=== PATIENT | female | born 1980 | race American Indian/Alaskan Native ===

== ENCOUNTER 2018-03-14 13:13 | Emergency (ER) | payer OTHER ==
[~2018-03-14] VITALS: Ht 152.4 cm; Wt 55.3 kg
[~2018-03-14 13:13] MED LIST: DOXYCYCLINE HY100 MG PO; HYDROXYZINE HCL50 MG PO; IBUPROFEN200 M1 PO; IRON240 MG PO; NORCO 5-325 TA1 EACH PO; OXYCODONE HCL5 MG PO; PRENATAL VITAM1 EACH PO; TUMS200 MG PO; ZOFRAN ODT4 MG PO; ZOFRAN ODT8 MG PO
[2018-03-14] MEDS ORDERED: DOXYCYCLINE HY100 MG PO (13:44)
== END 2018-03-14 14:02 | disposition home or self-care (01) ==
LOC: ED 13:13
DX: S00.06XA Insect bite (nonvenomous) of scalp, initial encounter (principal); Z88.2 Allergy status to sulfonamides; Z88.1 Allergy status to other antibiotic agents; W57.XXXA Bitten or stung by nonvenomous insect and other nonvenomous arthropods, initial encounter
CPT/HCPCS: 99283

== ENCOUNTER 2019-02-08 13:53 | Emergency (ER) | payer OTHER ==
[~2019-02-08] VITALS: Ht 152.4 cm; Wt 55.3 kg
[2019-02-08] MEDS ORDERED: ZOFRAN4 MG SL (16:27)
[2019-02-08] MEDS ORDERED: DICYCLOMINE HCL20 MG PO (16:27)
== END 2019-02-08 16:45 | disposition home or self-care (01) ==
LOC: ED 13:53
DX: R10.31 Right lower quadrant pain (principal); Z88.1 Allergy status to other antibiotic agents; Z88.2 Allergy status to sulfonamides
CPT/HCPCS: 74177; 80053; 81001; 83690; 84703; 85025; 96361; 99284-25; J1885; J2405; J7030; Q9967

== ENCOUNTER 2019-10-04 18:18 | Emergency (ER) | payer OTHER ==
[~2019-10-04] VITALS: Ht 152.4 cm; Wt 55.3 kg
[~2019-10-04 18:18] MED LIST changes: +DICYCLOMINE HCL20 MG PO; +ZOFRAN4 MG SL
[2019-10-04] MEDS ORDERED: ACETAMINOPHEN-1 EAC1 PO (22:35)
[2019-10-04] MEDS ORDERED: IBUPROFEN600 MG PO (22:35)
== END 2019-10-04 22:43 | disposition home or self-care (01) ==
LOC: ED 18:18
DX: N83.201 Unspecified ovarian cyst, right side (principal); Z88.2 Allergy status to sulfonamides; Z88.1 Allergy status to other antibiotic agents; Z88.8 Allergy status to other drugs, medicaments and biological substances
CPT/HCPCS: 74177; 80053; 81001; 83690; 84703; 85025; 96361; 99284-25; A9270; J7030; Q9967

== ENCOUNTER 2021-05-15 07:29 | Observation (INO) | payer OTHER ==
[~2021-05-15] VITALS: Ht 152.4 cm; Wt 60.3 kg
[~2021-05-15 07:29] MED LIST changes: +ACETAMINOPHEN-1 EAC1 PO; +IBUPROFEN600 MG PO
[2021-05-15] MEDS ORDERED: VENTOLIN HFA18 GM INH (07:45)
[2021-05-15] MEDS ORDERED: PENICILLIN V P500 MG PO (07:45)
--- NOTE | 2021-05-15 13:52 | NUR ---
05/15/21 1352 Sheets,Geraldine 1340 PT ARRIVED TO PACU WITH ORAL AIRWAY IN PLACE AND ON 6L VIA MASK. VSS. PT NONAROUSABLE TO PAINFUL STIMULI. 1349 ORAL AIRWAY REMOVED, PT WOKE AND FOLLOWING COMMANDS. PT REORIETNED TO PACU AND DENIES PAIN AND NAUSEA. PT EASILY FALLS BACK TO SLEEP.
--- NOTE | 2021-05-15 14:20 | NUR ---
Patient arrives in bed with Delia Valles RN. Currently on room air. Vital signs obtained, WNL. Patient is lethargic at this time and would like to rest. Incisions with steri strips in place. Umbilicus with small amount of serosanguinous drainage noted.
--- NOTE | 2021-05-15 15:36 | NUR ---
POST OP VITALS COMPLETED AND WNL. PT WITH NO PAIN. WAKING UP MORE NOW. AT BEDSIDE. JELLO PROVIDED. DENIES NAUSEA. LAP SITES WITH STERI STRIP AND SCANT AMOUNT OF DRAINAGE. CALL LIGHT IN REACH.
--- NOTE | 2021-05-15 17:33 | NUR ---
POST OP VITALS COMPLETED. PT REPORTS 4/10 PAIN INCREASING. PRN PERCOCET ADMISNTERED. LAP SITES WITH NO NEW DRAINAGE. NO NAUSEA. PT EATING REGULAR DIET FOR DINNER. UP TO VOID 600ML INDEPENDENTLY WITH . DENEIS FURTHER NEEDS. CALL LIGHT IN REACH.
[2021-05-15] MEDS ORDERED: FLONASE ALLERG9.9 ML NAS (18:09)
[2021-05-15] MEDS ORDERED: LUBRICANT EYE D15 M3 OU (18:10)
[2021-05-15] MEDS ORDERED: ALLERGY EYE DRO10 M1 OU (18:10)
--- NOTE | 2021-05-15 18:11 | NUR ---
MED REC COMPLETE
--- NOTE | 2021-05-15 18:12 | NUR ---
PT REPORTING NAUSEA. NO MEDS AVAILABLE. DR LEE NOTIFIED. TELEPHONE ORDER FR 4MG ZOFRAN IV Q6P AND PHENERGAN 12.5MG IV Q6P. ORDERS PLACED.
--- NOTE | 2021-05-15 18:29 | NUR ---
SMALL AMOUNT OF NAUSEA. ZOFRAN GIVEN. PT EATING DINNER NOW.
--- NOTE | 2021-05-15 19:47 | NUR ---
had 600cc undigested food emesis, received zofran earlier, pepcid given at this time. up to br, voided, changed intp regular clothes, sitting edge of bed talking to . no further c/o abd pain, tolerated well
--- NOTE | 2021-05-15 22:07 | NUR ---
UP TO BR, VOIDED LARGE AMOUNTS OF CLEAR YELLOW URINE, BACKA TO BED, TOLERATED WELL, IVF INFUSING, SCDS IN PLACE. CALL LIGHT AND FLUIDS AT BEDSIDE
--- NOTE | 2021-05-15 23:04 | NUR ---
scds off at her requests, turns and repositons self in bed, ivf infusing
--- NOTE | 2021-05-16 01:53 | NUR ---
Up to br, voided clear yellow urine QS. back to bed, c/o abd pain, medicated with 1 Percocet and 1 Motrin po. medicated with Zofran per slight c/o upset stomach. no emesis at this time. IVF and abx infusing w/o problems. Coop with assessment. Med teaching and post op home care explained to pt, stated understanding
--- NOTE | 2021-05-16 05:18 | NUR ---
Pt has slept off andon this shift. On room air. passing gas, [address] with old drainage. NATHANIEL, abd tender and soft. no bm since 05/14. Walked to BR several times and has been voided QS yellow urine. Has been medicated with Percocet, Motrin per abd pain with good pain relief. Had emesis at begining of shift, medicated with Zofran. tolerating liquids in small amounts. IVF infusing, cooperative. post op home dc expectations given verbally, all questions answered to her satisfaction. pleasant and cooperative. SCDS on, taken off at this time, Pt to be dc today, DC instructions and RX read for pt. uses call light
--- NOTE | 2021-05-16 06:35 | NUR ---
pt up to br, voided, low bp obtained 83/48 map 54 and 86/50 map 59, pulse 54 pt asymptomatic. alert and oriented, moving, drinking fluids, no c/o n/v or abd pain. message left w Dr Salinas phone [phone]
--- NOTE | 2021-05-16 06:42 | NUR ---
dr grover notified of low bp of 86/50 map 59, and 83/48 map 54 P54, asymptomatic, denies lighheadness, had walked to br, tolerating fluids well, visiting with family via phone at this time. " continue to observe, she had low bp's when I first saw her in the ER, seems to be her normal, cont to observe and recheck bp in 1-2 hours or earlier if symptomatic.
--- NOTE | 2021-05-16 08:12 | NUR ---
BENY RN ASKED THIS RN TO RECHECK PTS BP. PT SITTING UP TO SIDE OF BED AND HAD VOMITED 200ML. THIS RN TO RECHECK IT, 86 SBP. THIS RN RECHECKED WITH A MANUAL- 85/55. PT DENIES ANY DIZZYNESS AND WAS ABLE TO MOVE FROM ONE EDGE OF BED TO THE OTHER. PT REPORTS TO THIS RN THAT PT HAD ISSUES WITH PAIN MEDS WHEN SHE HAD A . PT DOES REPORT NAUSEA AND RELATES THIS TO HER IBUPROHEN AND PERCOCET THAT SHE RECEIVED.
--- NOTE | 2021-05-16 08:21 | NUR ---
THIS RN PROVIDED PT WITH 4MG OF ZOFRAN DUE TO PT REPORTING HAVING NAUSEA THIS AM AFTER TRYING OT EAT BREAKFAST
--- NOTE | 2021-05-16 08:45 | NUR ---
THIS RN IN TO ASSESS PT AND ADMINISTER SCHEDULED MEDICATIONS. PT SITTING UP AT THE SIDE OF THE BED AWAKE AND ALERT ON THE PHONE. PT REPORTS NO PAIN AT THIS TIME AND STATES HER NAUSEA HAS IMPROVED SINCE HAVING PRN ZOFRAN. SCHEDULED MEDICATIONS ADMINISTERED AT THIS TIME (SEE NOV). PT ASSESSED, 3 LAP SITES ARE INTACT WITH NO ACTIVE DRAINAGE, SITE BELOW UMBILICUS NOTED TO HAVE DRY BLOOD. PT REPORTS NO PAIN, PULSES ARE STRONG, PT DENIES NUMBNESS AND TINGLING. PT REPORTS NO FURTHER NEEDS AT THIS TIME WHEN ASKED, WILL CONTINUE PLAN OF CARE. CALL LIGHT IN REACH, BED IN LOWEST POSITION, IV ABX INFUSING ORDERED.
--- NOTE | 2021-05-16 10:07 | CONS ---
[facility] [address], [place] [address] Signed DATE OF CONSULTATION: 05/15/2021 REASON FOR EVALUATION: Acute appendicitis. HISTORY OF PRESENT ILLNESS: This 41-year-old [place] woman is a [place] of [facility]. She has lived locally for at least 2-3 years. She is accompanied by her , Mr. Velez. More than two days ago, she began having vague abdominal pain, which worsened at approximately 3:00 a.m. She presented to the emergency room where she was evaluated by Dr. Chan at approximately 7:30 a.m. Evaluation was highly suggestive of appendicitis and on that basis, she underwent a CT scan of the abdomen. This confirmed a dilated appendix with a fecalith and findings highly consistent with appendicitis. She is admitted for further evaluation and care at this time. PAST MEDICAL HISTORY: Does include in the past last in 2013, tubal ligation in 2016. She has had cholecystectomy in the past as well. She describes a history of "MRSA infection" for which she has had to take various antibiotics. Had developed allergies to various antibiotics in the past in relation to such treatments for MRSA. ALLERGIES: She is known to have allergy to sulfonamide antibiotics, clindamycin and vancomycin. Her manifestation is primarily that of a "rash." SOCIAL HISTORY: She is as described and has children. She lives locally. She is of a [place] in [place]. She has never smoked. REVIEW OF SYSTEMS: She denies any shortness of breath or chest pain. She has no dysphagia or dysuria. Her pain is mostly in the lower abdomen not focally in the right lower quadrant at this point however. PHYSICAL EXAMINATION: GENERAL: This is a pleasant [place] woman, who is reserved in her demeanor and accompanied by her . HEENT: Trachea is midline. CHEST: Shows normal respiratory excursion. She has no tachypnea. HEART: Regular. There is no murmur. ABDOMEN: Relatively flat and nondistended. Rovsing sign is positive, and there is marked tenderness at McBurney's point. Electronically Signed By: JESSE LEE MD 05/16/21 [facility] PATIENT NAME: SEBAS SARKAR CONSULTATION DATE OF : 76 REPORT #: [id number] PHYSICIAN: JESSE LEE MD PCP: [facility] REPORT IS CONFIDENTIAL AND NOT TO BE RELEASED WITHOUT AUTHORIZATION [facility] [address], [place] [address] Signed EXTREMITIES: Show no clubbing, cyanosis, or edema. VITAL SIGNS: Temperature is 98.1, pulse is 72, blood pressure 125/78, respirations 16, pulse oximetry 95%. LABORATORY STUDIES: Show a white count of 12.1, hematocrit 41.1, platelets 377,000. A Chem profile shows normal electrolytes. Creatinine is 0.65, glucose is 114. Liver enzymes are normal. Globulin 3.6, lipase 21. Beta-hCG is negative. COVID serology is negative. I have reviewed the CT scan in detail with radiologist and affirmed that there is a markedly dilated medially directed appendix. There is no sign of periappendiceal fluid or sign of abscess at this point. There was surgical absence of the gallbladder. ASSESSMENT: The patient has acute appendicitis with fecalith, a dilated appendix and history lasting more than 48 hours. Discussed the pathophysiology of the problem with the patient and her . I recommend that appendectomy be performed preferred by laparoscopic approach. The risks of bleeding, infection, need for open procedure, need for other indicated unforeseen procedures also reviewed with her. She is getting IV fluids infused at this time and I have ordered for her to have cefoxitin 2 g. We will schedule operation promptly. MD PEDRO Mckeon/MODL /[id number] cc: Jesse Chan MD Copies: ~ Electronically Signed By: JESSE LEE MD 05/16/21 1007 PATIENT NAME: SEBAS SARKAR CONSULTATION DATE OF : 76 REPORT #: [id number] PHYSICIAN: JESSE LEE MD PCP: [facility] REPORT IS CONFIDENTIAL AND NOT TO BE RELEASED WITHOUT AUTHORIZATION
--- NOTE | 2021-05-16 10:07 | OR ---
[facility] [address] [place], [place] [address] Signed DATE OF OPERATION: 05/15/2021 SURGEON: Jesse Lee MD PREOPERATIVE DIAGNOSIS: Acute appendicitis. POSTOPERATIVE DIAGNOSIS: Acute appendicitis. PROCEDURE: Laparoscopic appendectomy. ANESTHESIA: General endotracheal, Quinn Retana, NURSE LIAISON and local 20 mL of 0.25% Marcaine with epinephrine. INDICATION: This 41-year-old Serbian woman is from [place]. She has had two days of increasing abdominal pain in the right lower abdomen and lower abdomen becoming unbearable about 3:00 a.m. today. She presented to the emergency room where she was evaluated by Dr. Chan and found to have appendicitis on clinical criteria and CT scan confirmed this. She has been fluid resuscitated, given intravenous antibiotic cefoxitin and is now to undergo operation to include laparoscopic appendectomy, possible open procedure. The patient previously has undergone cholecystectomy. She understands the risk of bleeding, infection, need for open procedure, failure to cure her symptoms and other unforeseen complications and wished to proceed. FINDINGS: Indeed the appendix was markedly inflamed. Complete appendectomy was performed. The initial excision of the appendix left a very small nubbin of appendix and therefore an additional GRIFFIN stapling load was used to excise that as well. At conclusion, there was no remnant whatsoever of appendix or appendiceal stump. The appendix itself was markedly inflamed, but showed no evidence of actual perforation. The terminal ileum was normal. There was surgical absence of the gallbladder. The liver was normal. DESCRIPTION OF PROCEDURE: The patient was brought to the operating room, given a general endotracheal anesthetic. Preoperative antibiotic cefoxitin had been given as well as intravenous Pepcid. She Electronically Signed By: JESSE LEE MD 05/16/21 1007 PATIENT NAME: SEBAS SARKAR OPERATIVE REPORT DATE OF : 76 REPORT #: [id number] PHYSICIAN: JESSE LEE MD PCP: [facility] REPORT IS CONFIDENTIAL AND NOT TO BE RELEASED WITHOUT AUTHORIZATION [facility] [address] [place], [place] [address] Signed voided immediately prior to operation. After satisfactory general endotracheal anesthesia, the abdomen was prepared with a chlorhexidine solution and draped sterilely. An infraumbilical incision was made and using an open Kisha cannula technique pneumoperitoneum was achieved to a level of 14 mmHg with carbon dioxide gas. Intraabdominal inspection showed no sign of ascites or carcinomatosis. The liver appeared normal. There was surgical absence of the gallbladder. The appendix was not readily identified at that point. A 12 mm epigastric port was placed and the camera placed to that site. Single hand manipulation to the cecum did not allow for identification of the appendix, it appeared to be in a somewhat retrocecal medial position as confirmed by preoperative CT scan. On that basis, a right lower quadrant 5 mm port was placed and with two hand manipulation, the cecum was more fully identified following the taenia coli down to the base of the appendix. Appendix was directed posteriorly and had some tethering with peritoneal attachments. Meticulous care was used with electrocautery to free the appendix a bit from the retroperitoneum laterally, ultimately allowing for grasping of the proximal 3rd of the appendix, which was quite obviously markedly inflamed, but without sign of gangrene or perforation. With primarily blunt dissection, a window was created between the appendix and mesoappendix and ultimately an Endo-GRIFFIN stapling device was used to transect the appendix from the cecum. Further dissection and elevation of the appendix and the omentum was undertaken and an additional load of the Endo-GRIFFIN stapling device used to transect the appendiceal mesentery. There was one arterial blood vessel which was persistently bleeding and therefore was was gently grasped with a Dolphin nose instrument, occluded, and a small amount of electrocautery applied. This provided good hemostasis. Irrigation was undertaken further. The appendix was placed in an endobag and extracted through the infraumbilical port site and passed for pathology. Inspection of the staple line showed it to be hemostatic. There appeared to be just a small nubbin of appendiceal base left and on that basis, this was transected with an Endo-GRIFFIN stapling device allowing for complete and total removal of the appendix, so as to avoid any concern of that in the future. Irrigation was undertaken more fully. There was no sign of bleeding or other abnormality. Excess irrigation fluid was suctioned free in the right paracolic gutter as well as over the liver. Camera replaced to the umbilical site and epigastric and right lower quadrant trocars removed showing no evidence of bleeding. Attention was turned towards closure. The infraumbilical fascial incision was reapproximated with interrupted 0 Vicryl suture. A 20 mL of 0.25% Marcaine was injected into the trocar sites and skin closed with interrupted 3-0 Vicryl. Steri-Strips were applied. She was ultimately extubated and transferred to the recovery room in good Electronically Signed By: JESSE LEE MD 05/16/21 1007 PATIENT NAME: SEBAS SARKAR OPERATIVE REPORT DATE OF : 76 REPORT #: [id number] PHYSICIAN: JESSE LEE MD PCP: [facility] REPORT IS CONFIDENTIAL AND NOT TO BE RELEASED WITHOUT AUTHORIZATION [facility] [address] [place], [place] [address] Signed condition and suffered no complications. Sponge, needle, and instrument counts were correct x3. MD PEDRO Mckeon/BEN /[id number] cc: Dr. Jesse Chan [facility] Copies: ~ Electronically Signed By: JESSE LEE MD 05/16/21 1007 PATIENT NAME: SEBAS SARKAR MATTIE OPERATIVE REPORT DATE OF : 76 REPORT #: [id number] PHYSICIAN: JESSE LEE MD PCP: [facility] REPORT IS CONFIDENTIAL AND NOT TO BE RELEASED WITHOUT AUTHORIZATION
[2021-05-16] MEDS ORDERED: IBUPROFEN600 MG PO (10:28)
[2021-05-16] MEDS ORDERED: ACETAMINOPHEN500 MG PO (10:28)
--- NOTE | 2021-05-16 11:32 | NUR ---
THIS RN IN TO CHECK ON PT AND GIVE DISCHARGE INSTRUCTIONS, PT SITTING ON SIDE OF BED AND STATES SHE FEELS NAUSEAS AT THIS TIME. DR. LEE NOTIFIED AT THIS TIME OF PT'S NAUSEA. NEW ORDERS TO KEEP PT LONGER AND SEE HOW SHE DOES WITH LUNCH. THIS RN BACK IN TO CHECK ON PT. PT STATES HER NAUSEA HAS SUBSIDED AT THIS TIME, PT NOTED TO NOT HAVE VOMITTED. BOWEL TONES ASSESSED AT THIS TIME AND ARE HYPOACTIVE, PT STATES SHE HAS BEEN BURPING AND PASSING GAS BUT HAS NOT HAD A BM YET. PT ENCOURAGED TO WALK AROUND THE HALWAYS AT THIS TIME. PT WILLING TO DO SO AND IS NOW WALKING LAPS AROUND THE [facility] HALLWAYS WITH HER . PT REPORTS NO FURTHER NEEDS AT THIS TIME, LUNCH ORDERED FOR PT, WILL CONTINUE PLAN OF CARE.
--- NOTE | 2021-05-16 12:06 | NUR ---
THIS RN IN TO CHECK ON PT, PT SITTING AT CHAIR ON THE PHONE, AT BEDSIDE. PT REPORTS HER NAUSEA HAS IMPROVED AND THAT SHE FEELS MUCH BETTER AFTER WALKING A FEW LAPS AROUND THE HALLWAY. PT STATES SHE WANTS TO GO ON ANOTHER WALK BEFORE EATING HER LUNCH. PT DENIES ANY FURTHER NEEDS AT THIS TIME WHEN ASKED. PT NOW WALKING AROUND THE HALLWAYS AGAIN WITH HER AT HER SIDE, WILL CONTINUE PLAN OF CARE.
--- NOTE | 2021-05-16 12:33 | NUR ---
THIS RN IN TO CHECK ON PT, PT SITTING AT CHAIR EATING HER LUNCH, AT RECLINER AT BEDSIDE. PT STATED HER WALK WENT WELL AND THAT SHE FEELS MUCH BETTER. PT DENIES HAVING ANY NAUSEA AND STATES HER MEAL IS GOING WELL AND STATES SHE FEELS HUGNRY AT THIS TIME. PT STATES SHE HAS NOT HAD A BM YET BUT IS STILL PASSING GAS. PT REPORTS NO FURTHER NEEDS AT THIS TIME AND IS STILL SITTING AT SOFA EATING HER LUNCH. WILL CONTNUE PLAN OF CARE.
--- NOTE | 2021-05-16 12:49 | NUR ---
THIS RN IN TO CHECK ON PT, PT STATED SHE HAS FINISHED EATING HER LUNCH. PT FINISHED HALF OF HER SANDWICH. PT DENIES ANY NAUSEA SINCE HER LAST EPISODE. PT ALSO DENIES NEEDING ANY PAIN MEDICATION STATING IT IS TOLERABLE. BOWEL TONES ASSESSED AND ARE STILL HYPOACTIVE IN ALL 4 QUADRANT. PT DENIES ANY FEELINGS OF DISTENTION OR BLOATING, ABDOMEN TENDER. LAP SITES C/D/I WHEN ASSESSED WITH NO NEW SIGNS OF DRAINAGE. PT REPORTS NO FURTHER NEEDS AT THIS TIME WHEN ASKED, WILL CONTINUE PLAN OF CARE. CALL LIGHT IN REACH, BED IN LOWEST POSITION. PT RESTING BACK IN THE BED AT THIS TIME.
--- NOTE | 2021-05-16 13:40 | NUR ---
THIS RN IN TO CHECK ON PT AND TAKE VITALS. PT SITTING UP AT THE SIDE OF THE BED AWAKE AND ALERT. PT STATES HER PAIN IS IN CONTROL AT THIS TIME. PT REPORTS NO SEVERE NAUSEA SINCE HER LAST EPISODE, PT DOES REPORT SOME BELCHING WHICH SHE STATES MAKES HER FEEL SLIGHTLY NAUSEAS AT TIMES BUT RESOLVES QUICKLY AFTER BELCHING. . PT REPORTS HAVING A SMALL LIQUID SMEAR/BM WHEN ATTEMPTING TO HAVE A BM SHE STATED SHE FELT IF SHE HAD TO HAVE A BM. PT BOWEL TONES ASSESSED AND ARE ACTIVE IN ALL 4 QUADRANTS. PT REPORTS NO FURTHER NEEDS AT THIS TIME, STERI STRIPS C/D/I AND UNCHANGED, VITALS TAKEN, WILL CONTINUE PLAN OF CARE. CALL LIGHT IN REACH, BED IN LOWEST POSITION.
--- NOTE | 2021-05-16 13:55 | NUR ---
DR. LEE UPDATED ON PT STATUS REGARDING HER ACTIVE BOWEL TONES, CONTROLLED PAIN, IMPROVING INTAKE, AND IMPROVED NAUSEA. NEW ORDERS GIVEN TO DC PATIENT, WILL CONTINUE PLAN OF CARE AND DISCHARGE PT.
--- NOTE | 2021-05-16 14:10 | NUR ---
THIS RN IN TO GIVE PT DISCHARGE INSTRUCTIONS. PT SITTING AT THE SIDE OF THE BED AWAKE AND ALERT, AT THE BEDSIDE. DISCHARGE INSTRUCTIONS GIVEN AT THIS TIME. PT QUESTIONS ANSWERED AT THIS TIME. PT PRESCRIPTION, DC INSTRUCTIONS, AND BELONGINGS ALL WITH PT. PT TRANSFERRED TO THE FRONT LOBBY BY LORAINE VIA WHEELCHAIR WITH HER BELONGINGS AND .
--- NOTE | 2021-05-18 14:15 | PATH ---
[facility] [place] [facility] [address] [place], [place] [address] Signed SPECIMEN(S): A APPENDIX SPECIMEN SOURCE: A. APPENDIX CLINICAL HISTORY: Acute appendicitis. FINAL PATHOLOGIC DIAGNOSIS: Appendix, appendectomy: - Acute appendicitis. NAL:cml:C2NR MICROSCOPIC EXAMINATION: Histologic sections of all submitted blocks are examined by light microscopy. These findings, together with the gross examination, support the pathologic diagnosis. GROSS DESCRIPTION: The specimen, labeled "DW, A.," and designated on the requisition "appendix," is received in formalin and consists of Specimen: Appendix with mesoappendix. Dimensions: 6.4 x 2.7 x 1.2 cm. Serosa: [place] to hemorrhagic. Disruption: Not grossly identified. Inking: Staple line is inked black. Mucosa: [place] to hemorrhagic. Fecalith: Not grossly identified. Additional: None. Hide Measuring Machine Operator sections including cross section, the tip bisected, and resection margin shaved, are submitted in cassette (A1). AC (under the direct supervision of a pathologist) The Gross Description was prepared using a voice recognition system. The report was reviewed for accuracy; however, sound-alike word errors, addition and/or deletions may occur. If there is any question about this report, please contact Client Services. PERFORMING LABORATORY: The technical component was performed by [facility], [address] [place] [id number] (Metal Treater: Janiya Mcpherson MD; CLIA# [id number]). Professional interpretation was performed by [facility] [place] PATIENT NAME: SEBAS SARKAR PATHOLOGY DATE OF : 76 REPORT #: [id number] PHYSICIAN: CARLOS PATHOLOGY PCP: [facility] REPORT IS CONFIDENTIAL AND NOT TO BE RELEASED WITHOUT AUTHORIZATION [facility] [place] [facility] [address] [place], [place] [address] [address], [place] [address] (CLIA# [id number]). Diagnostician: Amber Elam MD Pathologist Electronically Signed 05/18/2021 Copies: ~ PATIENT NAME: ESBAS SARKAR PATHOLOGY DATE OF : 76 REPORT #: [id number] PHYSICIAN: CARLOS PATHOLOGY PCP: [facility] REPORT IS CONFIDENTIAL AND NOT TO BE RELEASED WITHOUT AUTHORIZATION
== END 2021-05-16 14:05 | disposition home or self-care (01) ==
LOC: ED 07:29 → MS 07:31
PROVIDERS: ADMIT Surgery; ATTEND Surgery
PROC: 0DTJ4ZZ Resection of Appendix, Percutaneous Endoscopic Approach (ICD-10-PCS; principal; 2021-05-15 11:32)
DX: K35.80 Unspecified acute appendicitis (principal); K38.1 Appendicular concretions; Z88.1 Allergy status to other antibiotic agents; Z88.2 Allergy status to sulfonamides
CPT/HCPCS: 00840; 74177; 80053; 81001; 83690; 84703; 85025; 88304; 96365; 96366; 96375; 96376; 99285-25; A9270; G0378; J0131; J0330; J0694; J1100; J1170; J1885; J2001; J2405; J2704; J3010; J7121; Q9967; U0003